=== PATIENT | female | born 1950 | race Caucasian/White ===

== ENCOUNTER → 2018-03-03 12:24 | Outpatient (CLI) | payer MEDICARE, OTHER, SELFPAY | PROVIDERS: Family Provider Family Medicine; PCP Family Medicine; Visit Provider Anesthesiology Pain Medicine | DX: M54.9 Dorsalgia, unspecified (principal) | CPT/HCPCS: 72072 ==

== ENCOUNTER → 2018-09-02 17:29 | Outpatient (CLI) | payer MEDICARE, SELFPAY ==
--- NOTE | 2018-09-02 17:40 | RAD_ITS ---
STUDY: X-RAY - THORACIC SPINE REASON FOR EXAM: Female, 68 years old. Back pain. TECHNIQUE: 2 view(s) of the thoracic spine were obtained. COMPARISON: Comparison is made with prior examination dated May 03, 2018. FINDINGS: There is an increase in the normal thoracic kyphosis. Once again, the patient is status post vertebroplasty of the T6-T12 vertebrae as well as the L3 vertebrae. This is unchanged. There is multilevel endplate spondylosis of the thoracic vertebrae. Loss of height of multiple vertebrae. There is multilevel disc space narrowing of the thoracic spine. The soft tissue structures are unremarkable. RAD/Thoracic Spine 2 Views IMPRESSION: Stable examination. Status post multilevel vertebroplasty. Electronically Signed: Sukhjinder Manriquez, at 8:29 EST , Service support ,
== END ==
PROVIDERS: Family Provider Family Medicine; PCP Family Medicine; Referring Provider Anesthesiology Pain Medicine; Visit Provider Anesthesiology Pain Medicine
DX: M54.9 Dorsalgia, unspecified (principal)
CPT/HCPCS: 72070

== ENCOUNTER → 2021-03-19 12:48 | Outpatient (CLI) | payer MEDICARE, SELFPAY ==
[2021-03-19 13:03] VITALS: BP 142/73; PULSE 52; RESP 16; TEMP 36.8; O2SAT 97
[2021-03-19] MEDS: DENOSUMAB 60 MG/ML SC (13:05)
== END ==
PROVIDERS: PCP Family Medicine; Referring Provider Internal Medicine Endocrinology, Diabetes & Metabolism; Visit Provider Internal Medicine Endocrinology, Diabetes & Metabolism
DX: M81.0 Age-related osteoporosis without current pathological fracture (principal)
CPT/HCPCS: 96372; J0897